=== PATIENT | female | born 1990 | race African-American/Black ===

== ENCOUNTER 2017-11-27 21:39 | Emergency (ER) | payer BC, MEDICAID ==
[~2017-11-27] VITALS: Ht 162.6 cm; Wt 64.0 kg
[2017-11-27] MEDS ORDERED: IBUPROFEN 600MG TABLET PO ONE (23:15)
[2017-11-28 01:45] VITALS: BP 124/79
== END 2017-11-28 01:45 | disposition home or self-care (01) ==
LOC: ER 22:07
DX: S00.83XA Contusion of other part of head, initial encounter (principal); R51 Headache; M25.562 Pain in left knee; Z98.890 Other specified postprocedural states; V43.52XA Car driver injured in collision with other type car in traffic accident, initial encounter; Y93.89 Activity, other specified; Y92.488 Other paved roadways as the place of occurrence of the external cause
CPT/HCPCS: 70450; 70486; 73562; 99284